=== PATIENT | female | born 1960 | race African-American/Black ===

== ENCOUNTER 2022-02-03 21:55 | Observation (INO) | payer OTHER, SELFPAY ==
[2022-02-03] VITALS (9 sets, daily range): BP systolic 175–176; BP diastolic 67–79; PULSE 49–77; RESP 12–22; TEMP 36.3; O2SAT 98–100
--- NOTE | ~2022-02-03 | CT_ITS ---
EXAMINATION: CT brain wo con DATE: 02/03/2022 22:27 INDICATION: stroke like symptoms TECHNIQUE: Computed tomography (CT) of the head was performed without intravenous contrast. The mA wa s adjusted according to patient size. Iterative reconstruction technique was employed. The dose-lengt h product was 605.33 mGy-cm. COMPARISON: None FINDINGS: No acute intracranial hemorrhage or extra-axial fluid collection. No hydrocephalus, mass, or herniation. No acute ischemic infarct. Unremarkable dural venous sinus attenuation. No acute osseous abnormality. The aerated spaces are clear. Mild chronic white matter change. Bilateral basal ganglia calcifications. Bilateral lens replacements . IMPRESSION: No acute intracranial process. Reviewed, dictated and finalized at location K.
--- NOTE | ~2022-02-03 | MR_ITS ---
EXAMINATION: MR brain/brain stem wo/w con DATE: 02/04/2022 11:29 INDICATION: Confusion. Stroke. TECHNIQUE: Magnetic resonance imaging (MRI) of the brain and brainstem was performed without and with 20 mL MultiHance intravenous contrast. COMPARISON: Head CT 02/03/2022 FINDINGS: There is an empty sella. There are scattered areas of nonspecific increased T2-weighted sig nal intensity in the cerebral white matter, which is within normal limits for the patient's age. Ther e is no intracranial hemorrhage, acute infarction, or abnormal intracranial mass lesion. The ventricl es are normal in size. There are likely changes of ocular lens replacement surgeries. The paranasal s inuses are clear. The mastoid air cells are normal. IMPRESSION: 1. No etiology for the patient's symptoms. Reviewed, dictated and finalized at location B.
--- NOTE | ~2022-02-03 | XR_ITS ---
EXAMINATION: XR chest 1V portable Exam Date/Time: 02/03/2022 22:10 CDT CLINICAL HISTORY: Stroke like symptoms Comparison: None available. RESULT: Lines, tubes, and devices: None. Lungs and pleura: Clear. Cardiomediastinal silhouette: Unremarkable cardiomediastinal silhouette. Other: No acute osseous or upper abdominal finding. IMPRESSION: No acute cardiopulmonary process Reviewed, dictated and finalized at location K.
--- NOTE | ~2022-02-03 | CT_ITS ---
EXAMINATION: CT abdomen pelvis w con DATE: 02/04/2022 01:55 INDICATION: Postoperative confusion. Post hysterectomy. TECHNIQUE: Computed tomography (CT) of the abdomen and pelvis was performed with 100 cc Omnipaque 350 intravenous contrast. The dose-length product was 1639.59 mGy-cm. Automated exposure control and ite rative reconstruction technique were employed. COMPARISON: None. FINDINGS: Lung bases are unremarkable. No significant pleural or pericardial effusion. Cardiomegaly. No significant vascular abnormality. No lymphadenopathy. There is postsurgical gas in t he anterior abdominal wall, consistent with recent procedure. No free intraperitoneal air. No lymphad enopathy. The liver, spleen, pancreas, adrenal glands and kidneys are unremarkable. Gallbladder is pr esent. Gallbladder is present. Mild osteoarthritis of the hips. Moderate lumbar spondylosis. IMPRESSION: 1. No acute abdominal abnormality. Reviewed, dictated and finalized at location A.
--- NOTE | 2022-02-03 22:05 | ECG_ITS ---
Measurements Intervals [place] Rate: 72 P: 65 [place]: 178 QRS: 0 QRSD: 101 T: 3 QT: 410 QTc: 449 Interpretive Statements SINUS RHYTHM BASELINE ARTIFACT- I, II, III, AVR, AVL, AVF, V1-V3 NORMAL ECG Electronically Signed On 02-04-2022 6:40:49 CDT by Lenny Goff D.O.
--- NOTE | 2022-02-03 22:15 | PC.NURSE ---
Pt to CT via stretcher at this time. Pt upright on stretcher during transport out of ED.
[2022-02-03 22:39] LABS: Basophils Absolute Auto 0.1 K/mm3 (0.0-0.1); Basophils Percent Auto 0.8 % (0.2-1.2); Eosinophils Absolute Auto 0.2 K/mm3 (0-0.3); Eosinophils Percent Auto 2.5 % (0-4.4); Hematocrit 40.3 % (37.0-47.0); Hemoglobin 12.8 g/dL (12.0-15.0); Immature Granulocyte Absolute 0.02 K/mm3 (0.00-0.031); Immature Granulocyte Percent A 0.3 % (0-0.5); Lymphocytes Absolute Auto 3.58 K/mm3 (0.9-3.2); Lymphocytes Percent Auto 46.9 % (18.3-44.2); Mean Corpuscular HGB Conc 31.8 g/dl (32-36); Mean Corpuscular Hemoglobin 27.8 pg (26-34); Mean Corpuscular Volume 87.6 fl (80-100); Mean Platelet Volume 11.6 fl (7.4-10.4); Monocytes Absolute Auto 0.9 K/mm3 (0.1-0.6); Monocytes Percent Auto 11.9 % (2.6-8.5); Neutrophils Absolute Auto 2.9 K/mm3 (1.3-6.7); Neutrophils Percent Auto 37.6 % (45.5-73.1); Platelet Count Result 244 k/mm3 (150-375); Red Cell Distribution Width 15.1 % (11.5-14.5); White Blood Count 7.6 K/mm3 (4.5-10.0)
[2022-02-03 22:52] LABS: Partial Thromboplastin Time 28.9 SECONDS (22.3-36.8)
[2022-02-03 22:54] LABS: Alanine Aminotransferase 11 U/L (6-35); Albumin Level 3.9 g/dL (3.5-5.1); Alkaline Phosphatase 54 U/L (38-126); Anion Gap 4 mmol/L (8-16); Aspartate Amino Transferase 27 U/L (14-36); Bilirubin,Total 0.4 mg/dL (0.2-1.3); Blood Urea Nitrogen 14 mg/dL (7-17); Calcium 8.7 mg/dL (8.4-10.2); Carbon Dioxide 30 mmol/L (22-30); Chloride 105 mmol/L (98-107); Estimated CRCL calculation 110 ml/min; Estimated Glomerular Filt Rate > 60; Glucose 108 mg/dL (65-110); Potassium 3.9 mmol/L (3.4-5.0); Sodium 139 mmol/L (137-145)
[2022-02-03 23:06] LABS: Troponin I < 0.012 ng/mL (0.000-0.034)
[2022-02-03 23:21] LABS: Appearance Urine Clear (Clear); Bilirubin Urine Negative (Negative); Color Urine Yellow (Yellow); Glucose Urine UA Negative (Negative); Ketones Urine Negative (Negative); Leukocyte Esterase Ur Negative LEU/UL (Negative); Nitrate Urine Negative (Negative); Protein Urine Negative (Negative); Urobilinogen Urine 0.2 mg/dL (<2.0)
[2022-02-03 23:22] LABS: Add Urine Microscopic? YES; Blood Urine Trace (Negative)
[2022-02-03 23:53] LABS: SARS-CoV-2 RNA PCR Negative
[2022-02-04] VITALS (31 sets, daily range): BP systolic 131–159; BP diastolic 57–99; PULSE 49–91; RESP 11–21; TEMP 35.9–36.7; O2SAT 94–100; BMI 43.0; BMI 46.1
--- NOTE | 2022-02-04 00:57 | ED.NEUROSD ---
HPI - Neuro Symptoms/Deficit General Chief Complaint: Neuro Symptoms/Deficit Stated Complaint: Stroke like symptoms Time Seen by Provider: 02/03/22 22:27 Source: patient and RN notes reviewed Mode of arrival: ambulatory Limitations: no limitations History of Present Illness HPI Narrative: This is a 61 year old female who presents with for evaluation of confusion. He states patients woke up this morning normal. Around 3 30 pm, patient became confused. He states he asked patient to open car door and she was unable to figure out how to open the door. He states 2 weeks ago she had a total hysterectomy performed at [facility]. He states patient has been prescribed codeine and meloxicam recently. He is unsure if patient has taken those medications today. He states patient has not had similar episodes in the past. He denies any trauma. He denies history of stroke or TIA. Related Data Home Medications Medication Instructions Recorded Confirmed albuterol sulfate 1 puff INHALATION Q6H PRN 02/04/22 02/04/22 ibuprofen 600 mg PO Q6H 02/04/22 02/04/22 levothyroxine 100 mcg PO DAILY 02/04/22 02/04/22 oxybutynin chloride 10 mg PO BID 02/04/22 02/04/22 Allergies Allergy/AdvReac Type Severity Reaction Status Date / Time No Known Allergies Allergy Verified 02/03/22 22:02 Review of Systems Review of Systems: All systems reviewed & are unremarkable except as noted in HPI and below PMFSH Past Medical History Medical History (Updated 02/04/22 @ 07:44 by Analy Julian MD) Arthritis Hypothyroidism Surgical History Surgical History (Updated 02/04/22 @ 03:52 by Analy Julian MD) H/O: hysterectomy Social History Social History (Updated 02/04/22 @ 03:52 by Analy Julian MD) Smoking status: Unknown if ever smoked Alcohol intake: unknown Substance use: unknown Spiritual care concerns: No Exam Const: General: no acute distress and alert Orientation/consciousness: patient oriented x3 HENMT: Head: normal to inspection Eyes: Pupils: Equal, round and reactive pupils present EOM: EOMs intact bilaterally Resp: Effort & Inspection: normal respiratory effort and no retractions Auscultation: clear to auscultation bilaterally Cardio: Rate: regular rate Rhythm: regular rhythm Heart sounds: no murmurs GI: GI Palp: Yes Soft to palpation, No Tenderness to palpation present (GI), No Guarding due to palpation present (GI) and No Rigid due to palpation Auscultation: normal bowel sounds Skin: General skin exam: normal color Rashes: no rashes Neuro: General: patient oriented x3, moves all extremities, no meningeal signs, no focal motor deficits and CN's II-XI intact bilaterally Cranial nerves: Yes Nystagmus not present Extrem: General: normal to inspection Psych: Mental Status: mental status grossly normal Affect: normal affect Course Reevaluation(s) Reevaluation #1: Patient presents with new onset confusion. This may be TGA. I spoke with [facility], and he is unable to see patient tomorrow so recommends talking to outside neurologist for transfer. I spoke with Dr. Bill Manuel ([facility] neurology). He recommends performing CT scan of her abdomen to look for source of infection as cause of her confusion. Call back after results. Date: 02/04/22 Time: 01:29 Reevaluation #2: I spoke with neurologist and he does not think this is stroke or TGA. He thinks it is something metabolic. I spoke with Dr. chaves who agrees this seems to be more encephalopathy . She will accepts for admission. Recommends ammonia and abg. Date: 02/04/22 Time: 04:44 Vital Signs Vital signs: Vital Signs Temperature 97.4 F L 02/03/22 21:57 Pulse Rate 57 L 02/03/22 21:57 Respiratory Rate 18 02/03/22 21:57 Blood Pressure 175/79 H 02/03/22 21:57 Pulse Oximetry 100 02/03/22 21:57 Temperature 97 F L 02/04/22 06:20 Pulse Rate 53 L 02/04/22 06:20 Respira
--- NOTE | 2022-02-04 01:08 | PC.NURSE ---
Call [facility] at [phone].
[2022-02-04 03:13] LABS: Ethanol < 10 mg/dL (<10)
[2022-02-04 03:19] LABS: Amphetamine Screen Urine Negative (Negative); Barbiturate Screen Urine Negative (Negative); Benzodiazepines Screen Urine Negative (Negative); Cannabinoid Screen Urine Negative (Negative); Cocaine Screen Urine Negative (Negative); Methadone Screen Urine Negative (Negative); Opiate Screen Urine Negative (Negative); Phencyclidine Screen Urine Negative (Negative)
[2022-02-04 05:01] LABS: Alveolar/Arterial O2 Gradient 16.9 mmHg; Base Excess ABG 1.1 mEq/l (+/-2.0); Carboxyhemoglobin 0.3 % THb (0-2.0); Device ROOM AIR; Fractional Inspired Oxygen 21 %; HCO3 ABG 24.6 mEq/l (22.0-26.0); Methemoglobin ABG 0.3 %THb (0-1.5); Modified Allen's Test Pass; Oxygen Content ABG 18.1 %vol (16.0-22.0); Oxygen Saturation ABG 97.3 % (95.0-100.0); Oxyhemoglobin 96.2 % THb (90.0-100.0); PCO2 ABG 35.6 mmHg (35.0-45.0); PO2 ABG 90.2 mmHg (80.0-100.0); Reduced Hemoglobin 3.2 %THb (0-5.0); Site Drawn RIGHT RADIAL; Total Hemoglobin 13.3 g/dL (12.0-18.0); pH ABG 7.457 (7.350-7.450)
[2022-02-04 05:41] LABS: Ammonia < 9 umol/L (9-30)
[2022-02-04] MEDS: SODIUM CHLORIDE 0.9% IV 1,000 ML 125 ML IV CONT ×3 (06:40→21:40)
[2022-02-04 08:54] LABS: Glucose Point of Care 76 mg/dl (65-105)
--- NOTE | 2022-02-04 10:51 | PM.IMHP ---
H&P: HPI History of Present Illness Date/Time: 02/04/22 10:51 Chief Complaint: 61 years old female with past medical history of hypothyroidism presented to the hospital with sudden-onset confusion patient has history of stroke in the past patient is not on aspirin or statin at home patient unable to provide history history was taken from the ER record patient is confused slow to response although she moved all extremity with mild generalized weakness no sensory loss but patient is slower to response does not follow commands appropriately CT scan of the head was negative MRI of the brain is pending depending on the results of the MRI of the brain possible transfer to tertiary facility if patient has acute stroke were neurology is available Review of Systems Review of Systems: ROS unobtainable: Yes unobtainable due to medical condition PMFSH Past Medical History Medical History (Updated 02/04/22 @ 10:54 by Adriane Caldwell MD) Arthritis Hypothyroidism Surgical History Surgical History H/O: hysterectomy Social History Social History Smoking status: Unknown if ever smoked Alcohol intake: unknown Substance use: unknown Spiritual care concerns: No Meds Home Medications and Allergies Home Medications Medication Instructions Recorded Confirmed Type albuterol sulfate 1 puff INHALATION Q6H PRN 02/04/22 02/04/22 History ibuprofen 600 mg PO Q6H 02/04/22 02/04/22 History levothyroxine 100 mcg PO DAILY 02/04/22 02/04/22 History oxybutynin chloride 10 mg PO BID 02/04/22 02/04/22 History Allergies Allergy/AdvReac Type Severity Reaction Status Date / Time No Known Allergies Allergy Verified 02/03/22 22:02 Vital Signs Vital Signs - 24 hr 02/03/22 21:57 02/03/22 22:28 02/03/22 22:30 Temperature 97.4 F L Pulse Rate 57 L 69 77 Respiratory Rate 18 17 19 Blood Pressure 175/79 H Pulse Oximetry 100 100 100 02/03/22 22:35 02/03/22 22:49 02/03/22 23:03 Temperature Pulse Rate 61 56 L 67 Respiratory Rate 16 22 H 16 Blood Pressure 176/67 H Pulse Oximetry 98 100 99 02/03/22 23:16 02/03/22 23:30 02/03/22 23:45 Temperature Pulse Rate 59 L 60 49 L Respiratory Rate 17 12 14 Blood Pressure Pulse Oximetry 100 99 02/04/22 01:10 02/04/22 01:21 02/04/22 01:30 Temperature Pulse Rate 56 L 55 L 50 L Respiratory Rate 11 L 20 18 Blood Pressure Pulse Oximetry 100 98 99 02/04/22 01:32 02/04/22 01:54 02/04/22 02:00 Temperature Pulse Rate 52 L 62 60 Respiratory Rate 15 14 16 Blood Pressure 149/77 H Pulse Oximetry 98 99 99 02/04/22 02:18 02/04/22 02:39 02/04/22 02:50 Temperature Pulse Rate 56 L 56 L 62 Respiratory Rate 17 18 15 Blood Pressure Pulse Oximetry 98 99 98 02/04/22 03:05 02/04/22 03:15 02/04/22 03:30 Temperature Pulse Rate 53 L 52 L 55 L Respiratory Rate 17 16 14 Blood Pressure Pulse Oximetry 99 98 98 02/04/22 03:59 02/04/22 04:00 02/04/22 04:01 Temperature Pulse Rate 59 L 54 L 63 Respiratory Rate 20 19 17 Blood Pressure 150/74 H Pulse Oximetry 95 99 98 02/04/22 04:15 02/04/22 04:16 02/04/22 04:30 Temperature Pulse Rate 53 L 59 L 52 L Respiratory Rate 18 17 17 Blood Pressure 144/99 H Pulse Oximetry 99 99 98 02/04/22 04:31 02/04/22 04:45 02/04/22 04:46 Temperature Pulse Rate 49 L 54 L 53 L Respiratory Rate 16 20 17 Blood Pressure 151/72 H 159/71 H Pulse Oximetry 98 96 96 02/04/22 05:00 02/04/22 05:01 02/04/22 06:20 Temperature 97 F L Pulse Rate 62 58 L 53 L Respiratory Rate 21 H 15 18 Blood Pressure 145/92 H 143/57 H Pulse Oximetry 94 98 98 Exam Const: Other: Patient looks confused HENMT: Mouth: Yes dry mucous membranes Eyes: Sclera: sclerae normal Pupils: Equal, round and reactive pupils present Neck: Neck: no JVD Resp: Auscultation: clear to auscul
--- NOTE | 2022-02-04 11:10 | PC.NURSE ---
Transferred to MRI [id number]
[2022-02-04] MEDS: ATORVASTATIN 40 MG TABLET PO (11:57)
[2022-02-04] MEDS: ASPIRIN 325 MG ENTERIC TABLET PO (11:57)
[2022-02-04 12:14] LABS: Amphetamine Screen Urine Negative (Negative); Barbiturate Screen Urine Negative (Negative); Benzodiazepines Screen Urine Negative (Negative); Cannabinoid Screen Urine Negative (Negative); Cocaine Screen Urine Negative (Negative); Methadone Screen Urine Negative (Negative); Opiate Screen Urine Negative (Negative); Phencyclidine Screen Urine Negative (Negative)
[2022-02-04 12:56] LABS: Cholesterol 136 mg/dL (0-200); HDL Direct 35 mg/dL; Magnesium 1.8 mg/dL (1.6-2.3); Triglycerides 121 mg/dL (<150)
[2022-02-04 13:07] LABS: LDL Cholesterol Direct 65 mg/dL
[2022-02-04 13:23] LABS: Free T4 Free Thyroxine 1.45 ng/mL (0.78-2.19)
[2022-02-04 13:37] LABS: Thyroid Stimulating Hormone Reflex 0.142 uIU/mL (0.465-4.68)
[2022-02-04 14:05] LABS: Folic Acid > 20.0 ng/mL (2.76->20)
--- NOTE | 2022-02-04 14:13 | PCSTNOTE ---
DYNAMIC BALANCER SET UP WORKER attempted to see patient for a Bedside Eval however patient was just leaving for MRI during this attempt. In the afternoon, this DYNAMIC BALANCER SET UP WORKER attempted to complete the Bedside Swallow Evaluation however patient was just starting to get an EEG that was to last for an hour, aftr DYNAMIC BALANCER SET UP WORKER availability. Will attempt again in the morning.
[2022-02-04 14:31] LABS: Free T4 Free Thyroxine Reflex 1.49 ng/dL (0.78-2.19)
[2022-02-04 15:15] LABS: Total Triiodothyronine (T3) 1.21 NG/ML (0.97-1.69)
[2022-02-04] MEDS: OXYBUTYNIN CHLORIDE 5 MG TABLET 10 MG PO (17:47)
[2022-02-04] MEDS: HEPARIN SODIUM 5,000 UNITS/ML VIAL 5000 UNITS SUB-Q (21:32)
[2022-02-05] VITALS (8 sets, daily range): BP systolic 129–153; BP diastolic 54–74; PULSE 59–77; RESP 18; TEMP 36.2–36.7; O2SAT 97–100
[2022-02-05] MEDS: SODIUM CHLORIDE 0.9% IV 1,000 ML 125 ML IV CONT ×3 (05:40→21:19)
[2022-02-05] MEDS: LEVOTHYROXINE SODIUM 100 MCG TABLET PO (05:41)
[2022-02-05 06:33] LABS: Basophils Percent Auto 0.5 % (0.2-1.2); Eosinophils Absolute Auto 0.2 K/mm3 (0-0.3); Eosinophils Percent Auto 2.8 % (0-4.4); Hematocrit 38.4 % (37.0-47.0); Hemoglobin 12.3 g/dL (12.0-15.0); Immature Granulocyte Absolute 0.01 K/mm3 (0.00-0.031); Immature Granulocyte Percent A 0.2 % (0-0.5); Lymphocytes Absolute Auto 2.63 K/mm3 (0.9-3.2); Lymphocytes Percent Auto 40.5 % (18.3-44.2); Mean Corpuscular Volume 87.3 fl (80-100); Monocytes Absolute Auto 0.8 K/mm3 (0.1-0.6); Monocytes Percent Auto 12.2 % (2.6-8.5); Neutrophils Absolute Auto 2.9 K/mm3 (1.3-6.7); Neutrophils Percent Auto 43.8 % (45.5-73.1); Platelet Count Result 235 k/mm3 (150-375); White Blood Count 6.5 K/mm3 (4.5-10.0)
[2022-02-05 06:50] LABS: Alanine Aminotransferase 10 U/L (6-35); Albumin Level 3.6 g/dL (3.5-5.1); Alkaline Phosphatase 46 U/L (38-126); Anion Gap 5 mmol/L (8-16); Aspartate Amino Transferase 24 U/L (14-36); Bilirubin,Total 0.8 mg/dL (0.2-1.3); Blood Urea Nitrogen 10 mg/dL (7-17); Carbon Dioxide 27 mmol/L (22-30); Chloride 108 mmol/L (98-107); Estimated CRCL calculation 114 ml/min; Estimated Glomerular Filt Rate > 60; Glucose 93 mg/dL (65-110); Potassium 3.8 mmol/L (3.4-5.0); Sodium 140 mmol/L (137-145)
[2022-02-05 07:50] LABS: Ethanol < 10 mg/dL (<10)
--- NOTE | 2022-02-05 08:38 | PCSTNOTE ---
Please refer to the Bedside Swallow Evaluation in the EMR. Please note, silent aspiration cannot be ruled out at bedside.
[2022-02-05] MEDS: OXYBUTYNIN CHLORIDE 5 MG TABLET 10 MG PO ×2 (08:58→17:46)
[2022-02-05] MEDS: ATORVASTATIN 40 MG TABLET PO (08:58)
[2022-02-05] MEDS: HEPARIN SODIUM 5,000 UNITS/ML VIAL 5000 UNITS SUB-Q ×2 (08:59→21:15)
[2022-02-05] MEDS: ASPIRIN 325 MG ENTERIC TABLET PO (08:59)
--- NOTE | 2022-02-05 11:29 | PM.IMPN ---
Progress Note: A&P Assessment and Plan (1) Acute confusion: Code(s): R41.0 - Disorientation, unspecified Status: Acute Assessment and Plan: Acute metabolic encephalopathy ABG no significant finding Ammonia normal Reviewed CBC CMP chest x-ray CT scan of the head mri head no significant finding UA no significant finding Stroke protocol was started Aspirin statin Follow carotid Doppler and echo Most likely patient has transient global amnesia significantly improved (2) Hypothyroidism: Code(s): E03.9 - Hypothyroidism, unspecified Status: Inactive Assessment and Plan: TSH at the lower level but has normal T4 (3) Bradycardia: Code(s): R00.1 - Bradycardia, unspecified Status: Acute Assessment and Plan: Follow echo results most likely related to obstructive sleep apnea follow-up with cardiology and PCP as outpatient (4) Elevated blood pressure reading: Code(s): R03.0 - Elevated blood-pressure reading, without diagnosis of hypertension Status: Acute Assessment and Plan: Continue to monitor improved Subjective Date/time seen: 02/05/22 11:29 Interval history: 61 years old female with past medical history of hypothyroidism presented to the hospital with sudden-onset confusion patient has history of stroke in the past patient is not on aspirin or statin at home patient unable to provide history history was taken from the ER record patient is confused slow to response although she moved all extremity with mild generalized weakness no sensory loss but patient is slower to response does not follow commands appropriately CT scan of the head was negative MRI of the brain is was negative symptom has significantly improved most likely patient has transient global amnesia Patient feels much better more alert today Patient denies fever headache chest pain shortness of breath I am seeing the patient for altered mental status Objective Data Vital Signs Vital Signs: Vital Signs - 24 hr 02/04/22 12:00 02/04/22 16:00 02/04/22 19:43 Temperature 96.7 F L 98.0 F 97.3 F L Pulse Rate 56 L 91 79 Respiratory Rate 20 20 19 Blood Pressure 131/57 L 152/73 H 133/65 Pulse Oximetry 100 99 100 02/04/22 20:00 02/04/22 21:19 02/04/22 23:54 Temperature 97.1 F L Pulse Rate 58 L 52 L 60 Respiratory Rate 18 Blood Pressure 139/57 L Pulse Oximetry 99 100 02/05/22 00:00 02/05/22 03:42 02/05/22 04:00 Temperature 97.4 F L Pulse Rate 77 60 60 Respiratory Rate 18 Blood Pressure 136/74 Pulse Oximetry 99 02/05/22 08:00 Temperature Pulse Rate 61 Respiratory Rate 18 Blood Pressure 143/65 H Pulse Oximetry 97 Intake/Output Intake/Output: Intake & Output 02/02/22 02/03/22 02/04/22 02/05/22 23:59 23:59 23:59 23:59 Intake Total 3800 1980 Output Total 1250 1800 Balance 2550 180 Meds/Results Medications: Active Medications Generic Name Dose Route Start Last Admin Trade Name Freq PRN Reason Stop Dose Admin Acetaminophen 650 mg 02/04/22 10:47 Acetaminophen 325 Mg Tablet PO Q4H PRN Mild Pain (1-3) or Fever Hydrocodone Bitart/Acetaminophen 1 tab 02/04/22 10:47 Hydrocodone/Acetaminophen (*Crx) 5-325 Mg Tablet PO Q4H PRN Moderate Pain (4-6) Albuterol 1 puff 02/04/22 10:49 Albuterol Sulfate (*Sp) Aerosol 1 Puff INHALATION Q6H PRN Shortness Of Breath Or Wheezing Aspirin 325 mg 02/04/22 11:00 02/05/22 08:59 Aspirin 325 Mg Enteric Tablet PO 325 mg QAM ROBERTO Administration Atorvastatin Calcium 40 mg 02/04/22 11:00 02/05/22 08:58 Atorvastatin 40 Mg Tablet PO 40 mg DAILY ROBERTO Administration Heparin Sodium (Porcine) 5,000 units 02/04/22 21:00 02/05/22 08:59 Heparin Sodium 5,000 Units/Ml Vial SUB-Q 5,000 units Q12HR ROBERTO Administration Sodium Chloride 1,000 mls @ 125 mls/hr 02/04/22 04:50 02/05/22 05:40 Normal Saline Iv IV CONT 125 mls/hr .Q8H ROBERTO Administratio
--- NOTE | 2022-02-05 22:45 | P.NEURO_ITS ---
Neurology EEG Report General Information Date of Study: 02/04/22 TEST EEG DIAGNOSIS Confusion CONDITION OF RECORDING wake and drowsy CLINICAL HISTORY Sudden onset of confusion EEG DESCRIPTION Wakefulness and drowsiness were obtained. No posterior dominant rythm was noted. During wakefulness there was symmetrical diffuse low to moderate voltage 4-5 Hz activity. During drowsiness there was diffuse slowing at 2-3 Hz activity and vertex sharp waves. Muscle artifacts were noted throughout the recording. IMPRESSION This EEG is abnormal due to the presence of moderate diffuse slowing. This EEG is indicative of the presence of moderate, bihemispheric cerebral dysfunction of the type seen most commonly in the setting of moderate toxico- metabolic encephalopathy. No epileptiform discharges or seizures are noted. .
[2022-02-06] VITALS: PULSE 75
[2022-02-06 04:00] VITALS: PULSE 54
--- NOTE | 2022-02-06 05:20 | PC.NURSE ---
director data processing noted in rounds that patient fall and safety score indicated patient to be a fall risk and activated bed alarm accordingly. Patient attempted to move from bed, thus activating alarm and was very upset. Patient indicates that all day I have not had to have this on and I was encouraged to walk with my walker . My nurse never told me that I couldn't be up by myself . If I use the call light, no one will come ; why didn't you tell me you were turning it on, I don't need it . director data processing attempted to explain the action of alarming the bed and patient continued to demonstrate increased frustration. It was explained to her that she has the right to refuse the alarm, however, because she uses a walker and her safety score falls within a certain range per our safety assessment, that she is considered to be at high risk for falls. It was not intended to activate the alarm to upset her and the weigh and charge worker did apologize for the upset caused by activating the alarm and patient continued to share her upset with staff who responded to assist with call lights.
[2022-02-06] MEDS: SODIUM CHLORIDE 0.9% IV 1,000 ML 125 ML IV CONT (05:22)
[2022-02-06] MEDS: LEVOTHYROXINE SODIUM 100 MCG TABLET PO (05:44)
[2022-02-06 06:00] VITALS: BP 151/72; PULSE 57; RESP 18; TEMP 36.6; O2SAT 100
[2022-02-06 06:50] LABS: Basophils Percent Auto 0.5 % (0.2-1.2); Eosinophils Absolute Auto 0.2 K/mm3 (0-0.3); Eosinophils Percent Auto 2.9 % (0-4.4); Hematocrit 38.4 % (37.0-47.0); Hemoglobin 12.2 g/dL (12.0-15.0); Immature Granulocyte Absolute 0.01 K/mm3 (0.00-0.031); Immature Granulocyte Percent A 0.1 % (0-0.5); Lymphocytes Absolute Auto 2.92 K/mm3 (0.9-3.2); Lymphocytes Percent Auto 40.1 % (18.3-44.2); Mean Corpuscular HGB Conc 31.8 g/dl (32-36); Mean Corpuscular Hemoglobin 27.8 pg (26-34); Mean Corpuscular Volume 87.5 fl (80-100); Mean Platelet Volume 12.3 fl (7.4-10.4); Monocytes Absolute Auto 0.9 K/mm3 (0.1-0.6); Monocytes Percent Auto 12.8 % (2.6-8.5); Neutrophils Absolute Auto 3.2 K/mm3 (1.3-6.7); Neutrophils Percent Auto 43.6 % (45.5-73.1); Platelet Count Result 247 k/mm3 (150-375); Red Blood Count 4.39 M/mm3 (4.2-5.4); Red Cell Distribution Width 14.8 % (11.5-14.5); White Blood Count 7.3 K/mm3 (4.5-10.0)
[2022-02-06 07:12] LABS: Alanine Aminotransferase 11 U/L (6-35); Albumin Level 3.9 g/dL (3.5-5.1); Alkaline Phosphatase 53 U/L (38-126); Anion Gap 7 mmol/L (8-16); Aspartate Amino Transferase 28 U/L (14-36); Bilirubin,Total 0.7 mg/dL (0.2-1.3); Blood Urea Nitrogen 9 mg/dL (7-17); Calcium 8.3 mg/dL (8.4-10.2); Carbon Dioxide 27 mmol/L (22-30); Chloride 106 mmol/L (98-107); Estimated CRCL calculation 114 ml/min; Estimated Glomerular Filt Rate > 60; Glucose 94 mg/dL (65-110); Potassium 4.1 mmol/L (3.4-5.0); Sodium 140 mmol/L (137-145)
[2022-02-06 08:00] VITALS: PULSE 61
[2022-02-06] MEDS: OXYBUTYNIN CHLORIDE 5 MG TABLET 10 MG PO (08:39)
[2022-02-06] MEDS: ASPIRIN 325 MG ENTERIC TABLET PO (10:25)
[2022-02-06] MEDS: ATORVASTATIN 40 MG TABLET PO (10:25)
[2022-02-06 12:00] VITALS: PULSE 62
--- NOTE | 2022-02-06 12:20 | PM.DS ---
DS: Admitting Diagnosis Discharge Date 02/06/2022 Admitting Diagnosis Amnesia DS: Discharge Diagnosis Discharge Diagnosis (1) Acute confusion: Code(s): R41.0 - Disorientation, unspecified Status: Acute Assessment and Plan: Acute metabolic encephalopathy ABG no significant finding Ammonia normal Reviewed CBC CMP chest x-ray CT scan of the head mri head no significant finding UA no significant finding Brain MRI was negative EEG with moderate bihemispheric cerebral dysfunction of the type seen most commonly in moderate toxic or metabolic encephalopathy. No seizures noted History of stroke 2009 was admitted [place]. Records not available. Most likely patient has transient global amnesia significantly improved LDL is 65 which is at goal. Start aspirin 81 mg daily at least due to history of stroke in the past. She has been off aspirin since he started taking meloxicam in 2019 (2) Hypothyroidism: Code(s): E03.9 - Hypothyroidism, unspecified Status: Inactive Assessment and Plan: TSH at the lower level but has normal T4 Resume levothyroxine (3) Bradycardia: Code(s): R00.1 - Bradycardia, unspecified Status: Acute Assessment and Plan: Possible obstructive sleep apnea follow-up with cardiology and PCP as outpatient Follow-up with PCP for further evaluation (4) Elevated blood pressure reading: Code(s): R03.0 - Elevated blood-pressure reading, without diagnosis of hypertension Status: Acute Assessment and Plan: Continue to monitor improved DS: Summary Hospital Course Hospital Course: See above Time Spent with Patient Time attestation: Total time spent providing and/or coordinating discharge services: 45 minutes Exam Narrative: Const: General: no acute distress and alert Orientation/consciousness: patient oriented x3 HENMT: Head: normal to inspection Eyes: Pupils: Equal, round and reactive pupils present EOM: EOMs intact bilaterally Resp: Effort & Inspection: normal respiratory effort and no retractions Auscultation: clear to auscultation bilaterally Cardio: Rate: regular rate Rhythm: regular rhythm Heart sounds: no murmurs GI: GI Palp: Yes Soft to palpation, No Tenderness to palpation present (GI), No Guarding due to palpation present (GI) and No Rigid due to palpation Auscultation: normal bowel sounds Skin: General skin exam: normal color Rashes: no rashes Neuro: General: patient oriented x3, moves all extremities, no meningeal signs, no focal motor deficits and CN's II-XI intact bilaterally Cranial nerves: Yes Nystagmus not present Extrem: General: normal to inspection Psych: Mental Status: mental status grossly normal Affect: normal affect DS: Data Data Completed and Pending Labs on day of discharge: Labs from last 24 hours 02/06/22 02/06/22 06:10 06:10 WBC 7.3 RBC 4.39 Hgb 12.2 Hct 38.4 MCV 87.5 MCH 27.8 MCHC 31.8 L RDW 14.8 H Plt Count 247 MPV 12.3 H Immature Gran % (Auto) 0.1 Neut % (Auto) 43.6 L Lymph % (Auto) 40.1 [place] % (Auto) 12.8 H Eos % (Auto) 2.9 Baso % (Auto) 0.5 Lymph # (Auto) 2.92 [place] # (Auto) 0.9 H Eos # (Auto) 0.2 Baso # (Auto) 0.0 Abs Immat Gran (auto) 0.01 Absolute Neuts (auto) 3.2 Absolute Nucleated RBC 0.0 Nucleated RBC % 0.0 Sodium 140 Potassium 4.1 Chloride 106 Carbon Dioxide 27 Anion Gap 7 L BUN 9 Creatinine 0.70 Estim Creat Clear Calc 114 Estimated GFR > 60 Glucose 94 Calcium 8.3 L Total Bilirubin 0.7 AST 28 ALT 11 Alkaline Phosphatase 53 Total Protein 7.0 Albumin 3.9 Discharge Plan Discharge Attending physician on discharge: Josh Soto Discharging Clinician: Josh Soto Anticipated Discharge Date/Time: 02/06/22 12:16 Patient Disposition: Home, Self-Care Activity: as tolerated Diet: heart healthy Patient Instructions: Antibiotic Form Stand Al
== END 2022-02-06 13:05 | disposition home or self-care (01) ==
LOC: ANHED 23:02 → ANH3MEDSUR 02-04 05:00
PROVIDERS: Emergency Medicine; Internal Medicine; Admitting Provider Internal Medicine; Emergency Provider General Practice; Visit Provider Internal Medicine
DX: R41.0 Disorientation, unspecified (principal); G93.40 Encephalopathy, unspecified; E03.9 Hypothyroidism, unspecified; R00.1 Bradycardia, unspecified; R03.0 Elevated blood-pressure reading, without diagnosis of hypertension; Z20.822 Contact with and (suspected) exposure to COVID-19
CPT/HCPCS: 36415; 36600; 51701; 70450; 70553; 71045; 74177; 80053; 80061; 80307; 81001; 81025; 82140; 82375; 82607; 82746; 82805; 82948; 83050; 83735; 84439; 84443; 84480; 84484; 85025; 85610; 85730; 92610; 93005; 95816; 96360; 96361; 96372; 97161; 97166; 97530; 99285; A9270; A9577; C9803; G0378; G0379; J1644; J7030; Q9967; U0003; U0005